=== PATIENT | female | born 1990 | race Caucasian/White ===

== ENCOUNTER → 2017-02-12 | Emergency (ER) | payer OTHER ==
[~2017-02-12] VITALS: Ht 162.6 cm; Wt 60.0 kg
[2017-02-12 05:05] VITALS: BP 116/70
== END | disposition home or self-care (01) ==
LOC: EMS 03:58
DX: S09.90XA Unspecified injury of head, initial encounter (principal); S00.81XA Abrasion of other part of head, initial encounter; Y08.89XA Assault by other specified means, initial encounter; Y93.89 Activity, other specified; Y92.89 Other specified places as the place of occurrence of the external cause; Y99.2 Volunteer activity
CPT/HCPCS: 70450; 81025; 99284